=== PATIENT | female | born 1945 | race Caucasian/White ===

== ENCOUNTER → 2024-07-31 12:12 | Outpatient (CLI) | payer MEDICARE, OTHER, SELFPAY ==
--- NOTE | 2024-08-04 18:18 | DI.NM.S_ITS ---
DATE OF SERVICE: 07/31/2024 NUCLEAR CARDIOLOGY MYOCARDIAL PERFUSION STUDY PROCEDURE PERFORMED: Pharmacologic vasodilator stress and rest myocardial perfusion imaging with gating to assess ejection fraction and regional wall motion. ORDERING PROVIDER: ERNESTO Dao. INDICATIONS: The patient is a 79-year-old morbidly obese, hypertensive female with chest discomfort. CARDIAC STRESS: Per protocol, 0.4 mg of regadenoson was infused with a normal hemodynamic response with mild dyspnea but no chest discomfort. Her resting ECG shows sinus rhythm with a left anterior fascicular block but normal ST segments. There are no significant ST-segment shifts or arrhythmias with stress. Per protocol, 24.6 millicuries of technetium-99m Myoview was injected and she was imaged 15 minutes later using a gated SPECT acquisition protocol. Four days later while at rest, she was injected with an additional 25 millicuries of technetium-99m Myoview and imaged 15 minutes later, again using a gated SPECT acquisition protocol. FINDINGS: 1. Raw data. There is fair myocardial tracer uptake, although with significant breast shadows that clearly produced significant attenuation. While the lung/heart ratio is elevated at 0.47, which can be a sign of pulmonary congestion, this is nonspecific since the breast attenuation reduces the cardiac tracer intensity. Clinical correlation is recommended. The TID ratio is normal at 1.15. 2. Quantitated gated SPECT: Post-stress ejection fraction is 79% without any focal wall motion abnormality. The resting ejection fraction is 81% with a resting end-diastolic volume that is borderline increased at 113 mL. 3. Myocardial perfusion imaging: Post-stress supine images show a fairly normal myocardial perfusion pattern although with a very subtle defect in the distal anterior wall that resolves on prone imaging, consistent with breast attenuation artifact. The resting images show similar perfusion pattern, although with improvement in the anterior defect, but likely due to differential breast positioning. IMPRESSION: 1. Normal myocardial perfusion study. 2. Subtle, slightly reversible anterior defect that resolves on prone imaging, most likely due to significant breast attenuation artifact. There is no compelling evidence for significant myocardial ischemia or myocardial infarction. 3. Normal left ventricular systolic function without focal wall motion abnormality and borderline increased left ventricular volumes. 4. No angina or ECG evidence of ischemia with pharmacologic vasodilator stress. [place] - RS/rain/MANISHA doc#: [id number]/job#: [id number] dd: 08/04/2024 16:34:00 dt: 08/04/2024 17:02:00 DICTATING MD/COPIES TO: Jose M Avilez MD; WESTON Dao COPIES MNE: [id number];
== END ==
PROVIDERS: Family Provider Physician Assistant Medical; PCP Physician Assistant Medical; Referring Provider Physician Assistant Medical; Visit Provider Physician Assistant Medical
DX: R07.9 Chest pain, unspecified (principal); I10 Essential (primary) hypertension; E66.01 Morbid (severe) obesity due to excess calories; Z68.42 Body mass index [BMI] 45.0-49.9, adult
CPT/HCPCS: 78452; 93017; A9502; J2785